=== PATIENT | male | born 1955 | race Caucasian/White ===

== ENCOUNTER 2025-03-22 06:14 | Day surgery (SDC) | payer MEDICARE, MEDICAID ==
[~2025-03-22] VITALS: Ht 167.6 cm; Wt 114.4 kg
[~2025-03-22 06:14] MED LIST: AMLO1TAB25 PO; ATOR40TA75 PO; BRIM5DRO15; BRIM5DRO25; CHLO50TA PO; DORZ2SOL5; ECOT81TA5 PO; FLAX1CAP5 PO; GLIP5TAB17 PO; ISOS1TAB36 PO; LOPI600T PO; METF10004 PO; OMEG10002 PO; POTA-151 PO; TRAD5TAB PO; VALS1TAB68 PO; VYZU0.02
[2025-03-22] MEDS: LIDOCAINE 3.5% 1 ML OPHTH TOPICAL GEL OU ONE (06:44)
[2025-03-22] MEDS ORDERED: MIDAZOLAM INJ 2 MG/2 ML VIAL As Ordered ONE (06:52)
[2025-03-22] MEDS: POVIDONE-IODINE 5% OPHTH PREP SOL 30ML As Ordered ONE (08:00)
[2025-03-22] MEDS: TOBRADEX OPHTH OINT 3.5 GM As Ordered ONE (08:16)
[2025-03-22] MEDS: LIDOCAINE 1% SDV 5 ML VIAL As Ordered ONE (08:23)
[2025-03-22 08:24] VITALS: BP 127/79; TEMP 97.3; O2SAT 97
[2025-03-22] MEDS: TOBRADEX OPHTH SUSP 2.5 ML As Ordered ONE (08:24)
== END 2025-03-22 08:47 | disposition home or self-care (01) ==
LOC: M SDC 06:14
PROVIDERS: ATTEND Ophthalmology
DX: H40.1111 Primary open-angle glaucoma, right eye, mild stage (principal); E11.9 Type 2 diabetes mellitus without complications; I10 Essential (primary) hypertension; E78.00 Pure hypercholesterolemia, unspecified; G47.30 Sleep apnea, unspecified; Z79.84 Long term (current) use of oral hypoglycemic drugs; Z79.899 Other long term (current) drug therapy; F17.290 Nicotine dependence, other tobacco product, uncomplicated; Z90.49 Acquired absence of other specified parts of digestive tract
CPT/HCPCS: 66183; C1783; J2250; J3010; J7315